=== PATIENT | male | born 1960 | race Caucasian/White ===

== ENCOUNTER 2021-01-08 12:35 | Outpatient (CLI) | payer OTHER | END 2021-01-08 12:36 | disposition home or self-care (01) | LOC: SCSRAD 12:35 | PROVIDERS: ATTEND Physician Assistant | DX: R06.09 Other forms of dyspnea (principal) | CPT/HCPCS: 71046 ==

== ENCOUNTER 2023-02-22 11:18 | Outpatient (CLI) | payer OTHER | END 2023-02-22 11:19 | disposition home or self-care (01) | LOC: SCSRAD 11:18 | PROVIDERS: ATTEND Physician Assistant | DX: M25.551 Pain in right hip (principal); M79.604 Pain in right leg; M47.817 Spondylosis without myelopathy or radiculopathy, lumbosacral region | CPT/HCPCS: 72100 ==

== ENCOUNTER 2023-03-02 12:41 | Outpatient (CLI) | payer OTHER | END 2023-03-02 12:42 | disposition home or self-care (01) | LOC: SCSMRI 12:41 | PROVIDERS: ATTEND Physician Assistant | DX: M43.06 Spondylolysis, lumbar region (principal); M48.061 Spinal stenosis, lumbar region without neurogenic claudication; M51.36 Other intervertebral disc degeneration, lumbar region; M51.26 Other intervertebral disc displacement, lumbar region; M48.07 Spinal stenosis, lumbosacral region | CPT/HCPCS: 72148 ==

== ENCOUNTER 2024-04-10 10:42 | Outpatient (CLI) | payer OTHER | END 2024-04-10 10:43 | disposition home or self-care (01) | LOC: SCSRAD 10:42 | PROVIDERS: ATTEND Physician Assistant | DX: R05.2 Subacute cough (principal) | CPT/HCPCS: 71046 ==

== ENCOUNTER 2024-05-08 16:00 | Outpatient (CLI) | payer OTHER | END 2024-05-08 16:01 | disposition home or self-care (01) | LOC: SLEEPLAB 16:00 | PROVIDERS: ATTEND Physician Assistant | DX: G47.33 Obstructive sleep apnea (adult) (pediatric) (principal); R53.83 Other fatigue; G47.61 Periodic limb movement disorder; G31.84 Mild cognitive impairment of uncertain or unknown etiology; F32.A Depression, unspecified; R06.83 Snoring; G47.00 Insomnia, unspecified; I10 Essential (primary) hypertension; F41.9 Anxiety disorder, unspecified; R09.02 Hypoxemia | CPT/HCPCS: 95800 ==